=== PATIENT | male | born 1960 | race Caucasian/White ===

== ENCOUNTER 2021-09-22 02:10 | Inpatient (IN) | payer OTHER ==
[2021-09-22 02:37] LABS: #Basophils 0.1 10x3/uL (0.0-0.2); #Monocytes 1.1 10x3/uL (0.0-1.1); #Neutrophils 10.2 10x3/uL (1.5-8.4); %Basophils 0.5 % (0.0-2.0); %Eosinophils 0.1 % (0.0-6.0); %Lymphocytes 16.7 % (18.0-47.0); %Monocytes 7.9 % (0.0-10.0); %Neutrophils 74.4 % (40.0-75.0); Hemoglobin 15.4 g/dL (13.5-17.5); Mean Corpuscular HGB CONC 31.8 g/dL (32.0-36.0); Mean Corpuscular Hemoglobin 27.6 pg (27.0-33.0); Mean Corpuscular Volume 86.9 fl (81.2-95.1); Mean Platelet Volume 9.3 fl (7.4-10.4); Platelet Count 277 10x3/uL (150-450); RBC Distribution Width 15.9 % (11.5-14.5); Red Blood Cell (RBC) Count 5.58 10x6/uL (4.32-5.72); White Blood Cell (WBC) Count 13.8 10x3/uL (3.5-10.5)
[2021-09-22] MEDS ORDERED: Morphine 4 MG/ML VIAL ONE (02:39)
[2021-09-22] MEDS ORDERED: Aspirin Chewable 81 MG TAB ONE (02:39)
[2021-09-22] MEDS ORDERED: Furosemide 40 MG/4 ML VIAL ONE (02:40)
[2021-09-22] MEDS ORDERED: Ondansetron PF 4 MG/2 ML Vial ONE (02:40)
[2021-09-22 02:52] LABS: ALT (SGPT) 29 U/L (8-55); AST (SGOT) 38 U/L (5-34); Albumin 3.2 g/dL (3.4-4.8); Alkaline Phosphatase 116 U/L (40-110); Anion Gap 15 mmol/L (10-20); BUN (Urea Nitrogen) 18 mg/dL (8.4-25.7); Calc. Creatinine Clearance 0 mL/min (70-130); Calcium 7.9 mg/dL (7.8-10.44); Carbon Dioxide 21 mmol/L (23-31); Chloride 108 mmol/L (98-107); Globulin 2.8 g/dL (2.4-3.5); Glucose 158 mg/dL (80-115); Lipase 15 U/L (8-78); Magnesium 1.6 mg/dL (1.6-2.6); Sodium 140 mmol/L (136-145)
[2021-09-22 03:12] LABS: CKMB 3.1 ng/mL (0-6.6)
[2021-09-22] MEDS ORDERED: Enoxaparin Sodium 80 MG/0.8 ML SYRINGE ONE (04:39)
[2021-09-22] MEDS ORDERED: Dextrose 50% Abboject 50 ML SYRINGE SLOW IVP PRN (06:05)
[2021-09-22] MEDS ORDERED: Dextrose 5% in Water 1,000 ML IV PRN (06:05)
[2021-09-22] MEDS ORDERED: Ondansetron PF 4 MG/2 ML Vial IVP PRN (06:05)
[2021-09-22] MEDS ORDERED: Guaifenesin DM 100-10/5 ML UDCUP PO PRN (06:05)
[2021-09-22] MEDS ORDERED: Senokot S 8.6-50 MG TAB PO PRN (06:05)
[2021-09-22] MEDS ORDERED: Acetaminophen 325 MG TAB PO PRN (06:05)
[2021-09-22] MEDS ORDERED: HYDROcodone/Acetaminophen 5/325 mg Tablet PO PRN (06:05)
[2021-09-22] MEDS ORDERED: Calcium Carbonate 500 MG ChewTAB PO PRN (06:05)
[2021-09-22] MEDS ORDERED: Nitroglycerin 0.4 MG TAB (25 Tab Bottle) SL PRN (06:28)
[2021-09-22 06:57] LABS: Bilirubin Neg (Negative); Blood, Urine 10 (Negative); Clarity Clear (Clear); Glucose, Urine (Dipstick) Normal (Negative); Ketone, Urine Negative (Negative); Leukocyte Negative (Negative); Nitrite Negative (Negative); Protein, Urine (Dipstick) 100 mg/dl (Neg-Trace); Urobilinogen Normal mg/dL (Less than 2)
[2021-09-22 07:09] LABS: Bacteria/HPF Rare-Few HPF (None Seen); RBC/HPF 0-3 HPF (0-3); Squamous Epithelial 0-3 HPF (0-3)
[2021-09-22 07:55] VITALS: BMI 26.3
[2021-09-22 08:38] LABS: SARS-CoV-2 NAA Rapid Test Not Detected (NotDetected)
[2021-09-22] MEDS: Famotidine 20 MG TAB PO SCH ×2 (08:43→21:13)
[2021-09-22] MEDS: Aspirin 81 mg Enteric Coated Tablet PO SCH (08:43)
[2021-09-22] MEDS: Carvedilol 12.5 MG TAB PO SCH ×3 (08:43→16:23)
[2021-09-22] MEDS: Allopurinol 300 MG TAB PO SCH (08:43)
[2021-09-22] MEDS: Clopidogrel Bisulfate 75 MG TAB PO SCH (08:43)
[2021-09-22] MEDS: Lisinopril 2.5 MG TAB PO SCH (08:43)
[2021-09-22] MEDS: Lantus 1000 UNITS/10 ML VIAL SC SCH (08:44)
[2021-09-22 08:56] LABS: CKMB 3.5 ng/mL (0-6.6)
[2021-09-22] MEDS ORDERED: Enoxaparin Sodium 40 MG/0.4 ML SYRINGE SC SCH (09:00)
[2021-09-22] MEDS ORDERED: Ciprofloxacin 0.3 % Oint 3.5 GM TUBE EA EYE SCH (09:00)
[2021-09-22] MEDS: HumaLOG 300 UNITS/3 ML VIAL SC PRN (11:55)
[2021-09-22 13:16] LABS: Bilirubin Neg (Negative); Blood, Urine 10 (Negative); Clarity Clear (Clear); Glucose, Urine (Dipstick) Normal (Negative); Ketone, Urine Negative (Negative); Leukocyte Negative (Negative); Nitrite Negative (Negative); Protein, Urine (Dipstick) 100 mg/dl (Neg-Trace); Urobilinogen Normal mg/dL (Less than 2)
[2021-09-22] MEDS: Furosemide 20 MG/2 ML VIAL SLOW IVP SCH (13:18)
[2021-09-22] MEDS: Ciprofloxacin 0.3% Ophth Drops 2.5 ml Bottle EA EYE SCH ×5 (13:18→22:44)
[2021-09-22 13:25] LABS: RBC/HPF 0-3 HPF (0-3); Squamous Epithelial 0-3 HPF (0-3); WBC/HPF None Seen HPF (0-3)
[2021-09-22 13:26] LABS: Bacteria/HPF Rare-Few HPF (None Seen)
[2021-09-22 14:45] LABS: CKMB 3.1 ng/mL (0-6.6)
[2021-09-22] MEDS: Atorvastatin Calcium 10 MG TAB PO SCH (21:13)
[2021-09-22] MEDS: Enoxaparin Sodium 40 MG/0.4 ML SYRINGE SC SCH (21:14)
[2021-09-23] MEDS: HumaLOG 300 UNITS/3 ML VIAL SC PRN ×3 (00:24→16:19)
[2021-09-23 05:46] LABS: Anion Gap 15 mmol/L (10-20); BUN (Urea Nitrogen) 29 mg/dL (8.4-25.7); Calc. Creatinine Clearance 57 mL/min (70-130); Calcium 8.9 mg/dL (7.8-10.44); Carbon Dioxide 21 mmol/L (23-31); Chloride 102 mmol/L (98-107); Glucose 138 mg/dL (80-115); Sodium 134 mmol/L (136-145)
[2021-09-23 05:49] LABS: #Basophils 0.1 10x3/uL (0.0-0.2); #Monocytes 1.5 10x3/uL (0.0-1.1); #Neutrophils 9.8 10x3/uL (1.5-8.4); %Basophils 0.6 % (0.0-2.0); %Eosinophils 0.2 % (0.0-6.0); %Lymphocytes 25.8 % (18.0-47.0); %Monocytes 9.7 % (0.0-10.0); %Neutrophils 63.2 % (40.0-75.0); Hemoglobin 14.5 g/dL (13.5-17.5); Mean Corpuscular HGB CONC 31.4 g/dL (32.0-36.0); Mean Corpuscular Hemoglobin 27.6 pg (27.0-33.0); Mean Platelet Volume 9.7 fl (7.4-10.4); Platelet Count 292 10x3/uL (150-450); RBC Distribution Width 16.6 % (11.5-14.5); Red Blood Cell (RBC) Count 5.25 10x6/uL (4.32-5.72); White Blood Cell (WBC) Count 15.5 10x3/uL (3.5-10.5)
[2021-09-23] MEDS: Furosemide 20 MG/2 ML VIAL SLOW IVP SCH ×2 (06:49→09:01)
[2021-09-23] MEDS: Ciprofloxacin 0.3% Ophth Drops 2.5 ml Bottle EA EYE SCH ×9 (06:49→22:24)
[2021-09-23] MEDS: Levothyroxine Sodium 50 MCG TAB PO SCH (06:49)
[2021-09-23] MEDS: Allopurinol 300 MG TAB PO SCH (08:15)
[2021-09-23] MEDS: Lisinopril 2.5 MG TAB PO SCH (08:15)
[2021-09-23] MEDS: Clopidogrel Bisulfate 75 MG TAB PO SCH (08:16)
[2021-09-23] MEDS: Lantus 1000 UNITS/10 ML VIAL SC SCH (08:16)
[2021-09-23] MEDS: Carvedilol 12.5 MG TAB PO SCH ×2 (08:16→16:12)
[2021-09-23] MEDS: Aspirin 81 mg Enteric Coated Tablet PO SCH (08:16)
[2021-09-23] MEDS: Famotidine 20 MG TAB PO SCH ×2 (08:16→20:05)
[2021-09-23] MEDS ORDERED: FLU VACC QS2021-22(6MOS UP)/PF 60 MCG/0.5 ML SYRINGE IM ONE (15:00)
[2021-09-23] MEDS: Atorvastatin Calcium 10 MG TAB PO SCH (20:04)
[2021-09-23] MEDS: Enoxaparin Sodium 40 MG/0.4 ML SYRINGE SC SCH (20:04)
[2021-09-24] MEDS: Ciprofloxacin 0.3% Ophth Drops 2.5 ml Bottle EA EYE SCH ×7 (05:36→21:18)
[2021-09-24] MEDS: Levothyroxine Sodium 50 MCG TAB PO SCH (05:39)
[2021-09-24] MEDS: Lantus 1000 UNITS/10 ML VIAL SC SCH (08:42)
[2021-09-24] MEDS: Carvedilol 12.5 MG TAB PO SCH ×2 (08:42→17:24)
[2021-09-24] MEDS: Aspirin 81 mg Enteric Coated Tablet PO SCH (08:42)
[2021-09-24] MEDS: Furosemide 20 MG/2 ML VIAL SLOW IVP SCH (08:42)
[2021-09-24] MEDS: Allopurinol 300 MG TAB PO SCH (08:42)
[2021-09-24] MEDS: Famotidine 20 MG TAB PO SCH ×2 (08:42→21:17)
[2021-09-24] MEDS: Clopidogrel Bisulfate 75 MG TAB PO SCH (08:42)
[2021-09-24 08:51] LABS: #Basophils 0.1 10x3/uL (0.0-0.2); #Monocytes 1.1 10x3/uL (0.0-1.1); #Neutrophils 10.5 10x3/uL (1.5-8.4); %Basophils 0.5 % (0.0-2.0); %Eosinophils 0.1 % (0.0-6.0); %Lymphocytes 23.4 % (18.0-47.0); %Monocytes 7.3 % (0.0-10.0); %Neutrophils 68.1 % (40.0-75.0); Hemoglobin 15.3 g/dL (13.5-17.5); Mean Corpuscular HGB CONC 31.2 g/dL (32.0-36.0); Mean Corpuscular Hemoglobin 27.4 pg (27.0-33.0); Mean Corpuscular Volume 87.8 fl (81.2-95.1); Mean Platelet Volume 10.1 fl (7.4-10.4); Platelet Count 343 10x3/uL (150-450); RBC Distribution Width 16.1 % (11.5-14.5); Red Blood Cell (RBC) Count 5.58 10x6/uL (4.32-5.72); White Blood Cell (WBC) Count 15.5 10x3/uL (3.5-10.5)
[2021-09-24 09:02] LABS: Anion Gap 17 mmol/L (10-20); BUN (Urea Nitrogen) 43 mg/dL (8.4-25.7); Calc. Creatinine Clearance 48 mL/min (70-130); Calcium 8.9 mg/dL (7.8-10.44); Carbon Dioxide 23 mmol/L (23-31); Chloride 99 mmol/L (98-107); Glucose 108 mg/dL (80-115); Potassium 4.6 mmol/L (3.5-5.1); Sodium 134 mmol/L (136-145)
[2021-09-24] MEDS: HumaLOG 300 UNITS/3 ML VIAL SC PRN ×2 (17:24→23:48)
[2021-09-24] MEDS: Atorvastatin Calcium 10 MG TAB PO SCH (21:17)
[2021-09-24] MEDS: Enoxaparin Sodium 40 MG/0.4 ML SYRINGE SC SCH (21:17)
[2021-09-25 04:49] LABS: #Basophils 0.1 10x3/uL (0.0-0.2); #Eosinphils 0.1 10x3/uL (0.0-0.5); #Monocytes 1.1 10x3/uL (0.0-1.1); #Neutrophils 9.4 10x3/uL (1.5-8.4); %Basophils 0.6 % (0.0-2.0); %Eosinophils 0.5 % (0.0-6.0); %Lymphocytes 25.4 % (18.0-47.0); %Monocytes 7.6 % (0.0-10.0); %Neutrophils 65.3 % (40.0-75.0); Hemoglobin 14.7 g/dL (13.5-17.5); Mean Corpuscular HGB CONC 31.7 g/dL (32.0-36.0); Mean Corpuscular Hemoglobin 27.6 pg (27.0-33.0); Mean Corpuscular Volume 87.1 fl (81.2-95.1); Mean Platelet Volume 9.7 fl (7.4-10.4); Platelet Count 318 10x3/uL (150-450); RBC Distribution Width 15.9 % (11.5-14.5); Red Blood Cell (RBC) Count 5.33 10x6/uL (4.32-5.72); White Blood Cell (WBC) Count 14.4 10x3/uL (3.5-10.5)
[2021-09-25 04:52] LABS: Anion Gap 16 mmol/L (10-20); BUN (Urea Nitrogen) 44 mg/dL (8.4-25.7); Calc. Creatinine Clearance 48 mL/min (70-130); Calcium 8.6 mg/dL (7.8-10.44); Carbon Dioxide 23 mmol/L (23-31); Chloride 100 mmol/L (98-107); Glucose 186 mg/dL (80-115); Sodium 135 mmol/L (136-145)
[2021-09-25] MEDS: Ciprofloxacin 0.3% Ophth Drops 2.5 ml Bottle EA EYE SCH ×5 (05:37→21:55)
[2021-09-25] MEDS: Levothyroxine Sodium 50 MCG TAB PO SCH (05:37)
[2021-09-25] MEDS ORDERED: Furosemide 40 MG TAB PO SCH (07:30)
[2021-09-25] MEDS ORDERED: Spironolactone 25 MG TAB PO SCH (08:00)
[2021-09-25] MEDS: Allopurinol 300 MG TAB PO SCH (09:40)
[2021-09-25] MEDS: Carvedilol 12.5 MG TAB PO SCH ×2 (09:40→18:20)
[2021-09-25] MEDS: Clopidogrel Bisulfate 75 MG TAB PO SCH (09:40)
[2021-09-25] MEDS: Aspirin 81 mg Enteric Coated Tablet PO SCH (09:40)
[2021-09-25] MEDS: Lantus 1000 UNITS/10 ML VIAL SC SCH (09:41)
[2021-09-25] MEDS: Famotidine 20 MG TAB PO SCH (09:42)
[2021-09-25] MEDS: HumaLOG 300 UNITS/3 ML VIAL SC PRN (18:20)
[2021-09-25] MEDS: Atorvastatin Calcium 10 MG TAB PO SCH (19:48)
[2021-09-25 19:54] VITALS: BP 116/78; TEMP 97.5
[2021-09-25] MEDS: Enoxaparin Sodium 40 MG/0.4 ML SYRINGE SC SCH (20:18)
[2021-09-26] MEDS ORDERED: Famotidine 20 MG TAB PO SCH (09:00)
== END 2021-09-25 22:20 | DRG 291 ==
LOC: CSHERS 02:10 → CSHTELE 06:43 → OBSVTOIN 06:44
PROVIDERS: ADMIT Student in an Organized Health Care Education/Training Program; ATTEND Internal Medicine
DX: I13.0 Hypertensive heart and chronic kidney disease with heart failure and stage 1 through stage 4 chronic kidney disease, or unspecified chronic kidney disease (principal); J18.9 Pneumonia, unspecified organism; J96.01 Acute respiratory failure with hypoxia; I50.23 Acute on chronic systolic (congestive) heart failure; N17.9 Acute kidney failure, unspecified; Z20.822 Contact with and (suspected) exposure to COVID-19; H10.9 Unspecified conjunctivitis; E03.9 Hypothyroidism, unspecified; B96.89 Other specified bacterial agents as the cause of diseases classified elsewhere; N18.2 Chronic kidney disease, stage 2 (mild); E11.22 Type 2 diabetes mellitus with diabetic chronic kidney disease; M10.9 Gout, unspecified; I50.810 Right heart failure, unspecified; E11.65 Type 2 diabetes mellitus with hyperglycemia; K21.9 Gastro-esophageal reflux disease without esophagitis; E78.2 Mixed hyperlipidemia; I25.118 Atherosclerotic heart disease of native coronary artery with other forms of angina pectoris; I25.5 Ischemic cardiomyopathy; I27.20 Pulmonary hypertension, unspecified; R77.8 Other specified abnormalities of plasma proteins; Z95.5 Presence of coronary angioplasty implant and graft; Z79.82 Long term (current) use of aspirin; Z79.899 Other long term (current) drug therapy; Z79.02 Long term (current) use of antithrombotics/antiplatelets; Z87.891 Personal history of nicotine dependence; Z79.4 Long term (current) use of insulin; Z88.8 Allergy status to other drugs, medicaments and biological substances; Z91.010 Allergy to peanuts
CPT/HCPCS: 36415; 36416; 71045; 80048; 80053; 81003; 81015; 82553; 83605; 83690; 83735; 83880; 84443; 84484; 85025; 85379; 87040; 87086; 93005; 93010; 93306; 94760; 94762; J1650; J1815; J1940; J2270; J2405; J3490; U0002

== ENCOUNTER 2022-08-11 20:41 | Emergency (ER) | payer OTHER ==
[2022-08-11 21:43] LABS: SARS-CoV-2 NAA Rapid Test Not Detected (NotDetected)
[2022-08-11 21:53] LABS: Bilirubin Neg (Negative); Blood, Urine Negative (Negative); Clarity Clear (Clear); Glucose, Urine (Dipstick) >=1000 mg/dL (Negative); Ketone, Urine Negative (Negative); Leukocyte Negative (Negative); Nitrite Negative (Negative); Protein, Urine (Dipstick) 30 mg/dl (Neg-Trace); Urobilinogen Normal mg/dL (Less than 2)
[2022-08-11 21:59] LABS: #Basophils 0.1 10x3/uL (0.0-0.2); #Eosinphils 0.2 10x3/uL (0.0-0.5); #Monocytes 0.9 10x3/uL (0.0-1.1); #Neutrophils 6.7 10x3/uL (1.5-8.4); %Basophils 0.5 % (0.0-2.0); %Eosinophils 2.1 % (0.0-6.0); %Lymphocytes 27.9 % (18.0-47.0); %Monocytes 7.9 % (0.0-10.0); Hemoglobin 14.3 g/dL (13.5-17.5); Mean Corpuscular HGB CONC 35.5 g/dL (32.0-36.0); Mean Corpuscular Volume 87.4 fl (81.2-95.1); Mean Platelet Volume 9.9 fl (7.4-10.4); Platelet Count 203 10x3/uL (150-450); RBC Distribution Width 13.5 % (11.5-14.5); Red Blood Cell (RBC) Count 4.61 10x6/uL (4.32-5.72)
[2022-08-11 22:01] LABS: Bacteria/HPF None Seen HPF (None Seen); RBC/HPF None Seen HPF (0-3); Squamous Epithelial None Seen HPF (0-3); WBC/HPF 0-3 HPF (0-3)
[2022-08-11 22:16] LABS: ALT (SGPT) 28 U/L (8-55); AST (SGOT) 21 U/L (5-34); Albumin 3.9 g/dL (3.4-4.8); Alkaline Phosphatase 160 U/L (40-110); Anion Gap 13 mmol/L (10-20); BUN (Urea Nitrogen) 30 mg/dL (8.4-25.7); Calc. Creatinine Clearance 0 mL/min (70-130); Calcium 9.2 mg/dL (7.8-10.44); Carbon Dioxide 26 mmol/L (23-31); Chloride 99 mmol/L (98-107); Estimated GFR 68; Glucose 337 mg/dL (80-115); Lipase 49 U/L (8-78); Potassium 3.9 mmol/L (3.5-5.1); Protein, Total 6.9 g/dL (5.8-8.1); Sodium 134 mmol/L (136-145)
[2022-08-11] MEDS ORDERED: Insulin Regular 300 UNITS/3 ML VIAL ONE (22:54)
== END 2022-08-11 23:27 | disposition still patient (30) ==
LOC: CSHERS 20:41
DX: E11.65 Type 2 diabetes mellitus with hyperglycemia (principal); E78.5 Hyperlipidemia, unspecified; I11.0 Hypertensive heart disease with heart failure; I50.9 Heart failure, unspecified; K21.9 Gastro-esophageal reflux disease without esophagitis; E03.9 Hypothyroidism, unspecified; Z79.899 Other long term (current) drug therapy
CPT/HCPCS: 36416; 80053; 81003; 81015; 82010; 83605; 83690; 85025; 96360; 96361; J1815; U0002